=== PATIENT | male | born 1995 ===

== ENCOUNTER 2017-10-17 20:15 | Emergency (ER) | payer OTHER ==
[~2017-10-17] VITALS: Ht 170.2 cm; Wt 104.3 kg
[2017-10-17 20:36] VITALS: BP 140/76; Ht 170.2 cm; Wt 104.3 kg
== END 2017-10-17 21:09 | disposition other institution (70) ==
LOC: ED 20:15
DX: Z02.89 Encounter for other administrative examinations (principal)